=== PATIENT | female | born 1940 | race Caucasian/White ===

== ENCOUNTER → 2017-09-08 | Emergency (ER) | payer OTHER ==
[~2017-09-08] VITALS: Ht 162.6 cm; Wt 72.6 kg
[~2017-09-08] MED LIST: AMBIEN10 MG PO; CARAFATE SU1 G/10 ML PO; ENALAPRIL MALEA10 MG NGT; KLONOPIN0.125 MG/T PO; LEVSIN/SL0.125 MG PO; LISINOPRIL2.5 MG; NORVASC2.5 M1; PAXIL10 MG/5 ML PO; PROTONIX40 MG PO; RESTORIL30 M1; [UNRECOGNIZED DRUG - OTHER] MC
== END | disposition home or self-care (01) ==
LOC: ER 09:16
DX: K52.9 Noninfective gastroenteritis and colitis, unspecified (principal)

== ENCOUNTER 2019-03-12 10:15 | Emergency (ER) | payer OTHER ==
[~2019-03-12] VITALS: Ht 162.6 cm; Wt 72.6 kg
== END 2019-03-12 22:21 | disposition home or self-care (01) ==
LOC: ER 10:15
DX: R10.13 Epigastric pain (principal); K52.89 Other specified noninfective gastroenteritis and colitis

== ENCOUNTER 2019-09-26 09:50 | Emergency (ER) | payer OTHER ==
[~2019-09-26] VITALS: Ht 162.6 cm; Wt 73.5 kg
== END 2019-09-27 04:06 | disposition home or self-care (01) ==
LOC: ER 09:50
DX: K59.09 Other constipation (principal); K57.90 Diverticulosis of intestine, part unspecified, without perforation or abscess without bleeding

== ENCOUNTER 2020-01-29 10:45 | Emergency (ER) | payer OTHER ==
[~2020-01-29] VITALS: Ht 157.5 cm; Wt 65.3 kg
== END 2020-01-29 15:23 | disposition home or self-care (01) ==
LOC: ER 10:45
DX: N39.0 Urinary tract infection, site not specified (principal)

== ENCOUNTER 2020-03-20 08:43 | Emergency (ER) | payer OTHER ==
[~2020-03-20] VITALS: Ht 162.6 cm; Wt 72.6 kg
== END 2020-03-20 22:57 | disposition home or self-care (01) ==
LOC: ER 08:43
DX: K52.89 Other specified noninfective gastroenteritis and colitis (principal); Z03.818 Encounter for observation for suspected exposure to other biological agents ruled out; R11.2 Nausea with vomiting, unspecified

== ENCOUNTER 2021-06-17 13:55 | Emergency (ER) | payer OTHER ==
[~2021-06-17] VITALS: Ht 162.6 cm; Wt 74.8 kg
[2021-06-17] MEDS ORDERED: VITAMIN B-121000 MC4 (14:29)
[2021-06-17] MEDS ORDERED: LEVOTHYROXINE25 MCG (14:29)
[2021-06-17] MEDS ORDERED: LYRICA50 MG (14:29)
[2021-06-17] MEDS ORDERED: CYMBALTA60 MG (14:29)
[2021-06-17] MEDS ORDERED: CHILDREN'S ASPI81 MG (14:30)
[2021-06-17] MEDS ORDERED: AMLODIPINE-OLM1 EACH (14:30)
[2021-06-17] MEDS ORDERED: LEXAPRO20 MG (14:30)
[2021-06-17] MEDS ORDERED: ZESTRIL5 MG (14:31)
== END 2021-06-17 17:24 | disposition home or self-care (01) ==
LOC: ER 13:55
DX: R60.0 Localized edema (principal); N39.0 Urinary tract infection, site not specified

== ENCOUNTER 2023-01-19 14:12 | Emergency (ER) | payer OTHER ==
[~2023-01-19] VITALS: Ht 162.6 cm; Wt 68.9 kg
[~2023-01-19 14:12] MED LIST changes: +AMLODIPINE-OLM1 EACH; +CELEBREX100 MG PO; +CHILDREN'S ASPI81 MG; +COZAAR50 MG; +CYMBALTA60 MG; +LEVOTHYROXINE25 MCG; +LEXAPRO20 MG; +LYRICA50 MG; +METAXALONE400 MG PO; +VITAMIN B-121000 MC4; +ZESTRIL5 MG
== END 2023-01-19 22:23 | disposition home or self-care (01) ==
LOC: ER 14:12
DX: K29.60 Other gastritis without bleeding (principal); R11.10 Vomiting, unspecified

== ENCOUNTER 2023-02-27 08:10 | Inpatient (IN) | payer OTHER ==
[~2023-02-27] VITALS: Ht 152.4 cm; Wt 69.4 kg
[2023-02-27] MEDS ORDERED: SIMVASTATIN10 MG (08:33)
--- NOTE | 2023-02-27 08:36 | NUR ---
SE RECIBE FEMINA ALERTA Y ORIENTADA X3 QUIEN REFIERE DOLOR EN EL ABDOMEN DESDE HACE 2 SEMANAS. VERBALIZA DORA VISITADO AL GASTROENTEROLGO Y LOS MEDICAMENTOS NO LE FUNCIONAN. SE MIDEN S/V Y SE UBICA.
--- NOTE | 2023-02-27 08:49 | NUR ---
PTE EVALUADO POR DR. GRIJALVA SE EJECUTA ORDENE MEDICA Y SE JUSTIN MUESTRA BAJO MEDIDAS ASEPTICAS, SE OREINTA PTE REFIERE ENTENDER
[2023-03-03] MEDS ORDERED: LOSARTAN-HCTZ1 EACH (13:31)
[2023-03-03] MEDS ORDERED: PREGABALIN75 MG (13:31)
[2023-03-03] MEDS ORDERED: NORVASC2.5 MG (13:31)
[2023-03-03] MEDS ORDERED: FOLIC ACID1 MG (13:31)
[2023-03-03] MEDS ORDERED: FAMOTIDINE20 MG (13:31)
[2023-03-03] MEDS ORDERED: PANTOPRAZOLE SO40 MG (13:31)
[2023-03-03] MEDS ORDERED: TOLTERODINE TART4 MG (13:32)
== END 2023-03-04 21:00 | disposition home or self-care (01) | DRG 392 ==
LOC: ER 08:10 → MEDI 18:35
PROVIDERS: ADMIT Internal Medicine; ATTEND Internal Medicine
PROC: BW21YZZ Computerized Tomography (CT Scan) of Abdomen and Pelvis using Other Contrast (ICD-10-PCS; principal; 2023-02-27)
DX: K57.30 Diverticulosis of large intestine without perforation or abscess without bleeding (principal); K52.89 Other specified noninfective gastroenteritis and colitis; E86.0 Dehydration; I10 Essential (primary) hypertension; E03.9 Hypothyroidism, unspecified; Z20.822 Contact with and (suspected) exposure to COVID-19

== ENCOUNTER 2023-03-07 07:12 | Emergency (ER) | payer OTHER ==
[~2023-03-07] VITALS: Ht 160 cm; Wt 68.9 kg
[~2023-03-07 07:12] MED LIST changes: +FAMOTIDINE20 MG; +FOLIC ACID1 MG; +LOSARTAN-HCTZ1 EACH; +NORVASC2.5 MG; +PANTOPRAZOLE SO40 MG; +PREGABALIN75 MG; +SIMVASTATIN10 MG; +TOLTERODINE TART4 MG
== END 2023-03-07 11:29 | disposition home or self-care (01) ==
LOC: ER 07:12
DX: K29.70 Gastritis, unspecified, without bleeding (principal)

== ENCOUNTER 2023-03-09 08:10 | Emergency (ER) | payer OTHER ==
[~2023-03-09] VITALS: Ht 160 cm; Wt 69.4 kg
== END 2023-03-09 14:14 | disposition home or self-care (01) ==
LOC: ER 08:10
DX: R10.13 Epigastric pain (principal); I10 Essential (primary) hypertension

== ENCOUNTER 2023-07-27 08:52 | Emergency (ER) | payer OTHER ==
[~2023-07-27] VITALS: Ht 160 cm; Wt 71.7 kg
[2023-07-27 10:33] LABS: HEMATOCRIT 33.8 % (36.0-45.00); HEMOGLOBIN 11.5 g/dL (12.0-15.00); MEAN CELL VOLUME 87.9 fL (80.00-100.00); MEAN CORPUSCULAR HGB CONC 34.1 g/dl (32.0-36.0); PLATELET COUNT 187 K/uL (150-450); RED BLOOD COUNT 3.84 M/uL (4.00-6.00); RED CELL DISTRIBUTION WIDTH 14.5 % (11.5-14.5)
[2023-07-27 10:37] LABS: CALCIUM 9.4 mg/dL (8.5-10.1); CREATININE SERUM 1.5 mg/dL (0.55-1.02); GFR 33.08; POTASSIUM 4.02 mEq/L (3.5-5.1)
[2023-07-27 10:44] LABS: URINE APPEARANCE Clear; URINE BILIRRUBIN Negative (NEGATIVE); URINE BLOOD Negative; URINE COLOR Yellow; URINE GLUCOSE Negative (NEGATIVE); URINE LEUKOCYTE Trace; URINE NITRATE Negative; URINE PROTEIN Negative (NEGATIVE); URINE UROBILINOGEN 0.2 E.U./dl
[2023-07-27 10:45] LABS: URINE BACTERIA 7.5 uL (0.0-1933); URINE EPITHELIAL CELLS 2.3 uL (0.0-38.8); URINE WBC 2.3 uL (0.0-23.2)
[2023-07-27 10:52] LABS: URINE RBC 0.8 uL (0.0-20.8)
== END 2023-07-27 12:39 | disposition home or self-care (01) ==
LOC: ER 08:52
PROVIDERS: General Practice
DX: R10.9 Unspecified abdominal pain (principal); K57.90 Diverticulosis of intestine, part unspecified, without perforation or abscess without bleeding
CPT/HCPCS: 36415; 74018; 96365; 96366; 99284; J2405; J3490; J7030

== ENCOUNTER 2023-07-28 13:18 | Inpatient (IN) | payer OTHER ==
[~2023-07-28] VITALS: Ht 154.9 cm; Wt 147.9 kg
[2023-07-28 15:46] LABS: HEMATOCRIT 37.2 % (36.0-45.00); HEMOGLOBIN 12.3 g/dL (12.0-15.00); MEAN CELL VOLUME 90.7 fL (80.00-100.00); MEAN CORPUSCULAR HEMOGLOBIN 29.9 pg (27.00-32.0); PLATELET COUNT 200 K/uL (150-450); RED BLOOD COUNT 4.11 M/uL (4.00-6.00); RED CELL DISTRIBUTION WIDTH 14.7 % (11.5-14.5)
[2023-07-28 16:01] LABS: PH,URINE 5.5 (5.0-8.0); URINE APPEARANCE Clear; URINE BILIRRUBIN Negative (NEGATIVE); URINE BLOOD Negative; URINE COLOR Yellow; URINE GLUCOSE Negative (NEGATIVE); URINE LEUKOCYTE Trace; URINE NITRATE Negative; URINE PROTEIN Trace (NEGATIVE); URINE UROBILINOGEN 0.2 E.U./dl
[2023-07-28 16:05] LABS: INR 1.09; PARTIAL THROMBOPLASTIN TIME 28.8 SECONDS (22.0-34.0); PROTHROMBIN TIME 11.4 SECONDS (9.0-11.5)
[2023-07-28 16:05] LABS: URINE BACTERIA 7.5 uL (0.0-1933); URINE RBC 5.8 uL (0.0-20.8)
[2023-07-28 16:06] LABS: CALCIUM 9.5 mg/dL (8.5-10.1); CREATININE SERUM 1.55 mg/dL (0.55-1.02); GFR 31.85; POTASSIUM 3.76 mEq/L (3.5-5.1)
[2023-07-29 02:51] LABS: MAGNESIUM 2.1 mg/dL (1.8-2.4); PHOSPHOROUS 3.6 mg/dL (2.5-4.9)
[2023-07-29 16:18] LABS: CALCIUM 8.7 mg/dL (8.5-10.1); CHOL HDL RATIO 1.4 (0-5.0); CREATININE SERUM 1.33 mg/dL (0.55-1.02); GFR 38.01; POTASSIUM 3.89 mEq/L (3.5-5.1)
[2023-07-30 07:48] LABS: HEMATOCRIT 34.1 % (36.0-45.00); HEMOGLOBIN 11.6 g/dL (12.0-15.00); MEAN CELL VOLUME 88.7 fL (80.00-100.00); MEAN CORPUSCULAR HEMOGLOBIN 30.1 pg (27.00-32.0); MEAN CORPUSCULAR HGB CONC 33.9 g/dl (32.0-36.0); PLATELET COUNT 190 K/uL (150-450); RED BLOOD COUNT 3.85 M/uL (4.00-6.00)
[2023-07-30 07:52] LABS: ALBUMIN 3.4 gm/dL (3.4-5.0); BILIRUBIN TOTAL 0.32 mg/dL (0.3-1.2); CALCIUM 8.8 mg/dL (8.5-10.1); CREATININE SERUM 1.36 mg/dL (0.55-1.02); GFR 37.04; GLOBULINA 2.9 G/DL (2.4-3.5); POTASSIUM 3.77 mEq/L (3.5-5.1); TOTAL PROTEIN 6.3 gm/dL (6.4-8.2)
[2023-07-31] MEDS ORDERED: MIRALAX510 GM PO (14:21)
[2023-07-31] MEDS ORDERED: AMOX-CLAV 875-1 EACH PO (14:21)
[2023-07-31] MEDS ORDERED: LEVSIN/SL0.125 MG SL (14:21)
[2023-07-31] MEDS ORDERED: NASAL MIST126 ML NASAL (14:21)
== END 2023-07-31 15:36 | disposition home or self-care (01) | DRG 392 ==
LOC: ER 13:18 → SEC-K 22:32 → MEDJ 22:32
PROVIDERS: General Practice; ADMIT Internal Medicine; ATTEND Internal Medicine
PROC: BW21ZZZ Computerized Tomography (CT Scan) of Abdomen and Pelvis (ICD-10-PCS; principal; 2023-07-28)
DX: K52.89 Other specified noninfective gastroenteritis and colitis (principal); E03.9 Hypothyroidism, unspecified; E78.49 Other hyperlipidemia; I12.9 Hypertensive chronic kidney disease with stage 1 through stage 4 chronic kidney disease, or unspecified chronic kidney disease; N18.30 Chronic kidney disease, stage 3 unspecified

== ENCOUNTER 2024-05-16 09:03 | Emergency (ER) | payer OTHER ==
[~2024-05-16] VITALS: Ht 162.6 cm; Wt 71.7 kg
[~2024-05-16 09:03] MED LIST changes: +AMOX-CLAV 875-1 EACH PO; +LEVSIN/SL0.125 MG SL; +MIRALAX510 GM PO; +NASAL MIST126 ML NASAL
== END 2024-05-16 10:58 | disposition home or self-care (01) ==
LOC: ER 09:05
DX: S89.81XA Other specified injuries of right lower leg, initial encounter (principal); W19.XXXA Unspecified fall, initial encounter; Y93.89 Activity, other specified; Y92.89 Other specified places as the place of occurrence of the external cause; Y99.8 Other external cause status; I10 Essential (primary) hypertension; E03.8 Other specified hypothyroidism

== ENCOUNTER 2025-02-28 09:48 | Inpatient (IN) | payer OTHER ==
[~2025-02-28] VITALS: Ht 160 cm; Wt 72.6 kg
--- NOTE | 2025-02-28 10:50 | NUR ---
PTE ALERTA Y ORIENTADA X3 REFIERE QUE TIENE DOLOR ABDOMINAL. SE MIDEN S/V Y SE UBICA.
[2025-02-28] MEDS ORDERED: KETOROLAC TROMETHAMINE 30 MG VIAL IV ONE (11:30)
--- NOTE | 2025-02-28 12:34 | NUR ---
PTE. EVALUADO POR DR. PENNINGTON, PRESENTANDO DOLOR ABDOMINAL, SE COLECTAN MUESTRA POR ORDEN MEDICA Y SE ADMINISTRA MEDICACION PRE-ESCRITA. SE OFRECE ORIENTACION SOBRE PROCEDIMIENTOS REALIZADOS Y PROCESO DE RE-EVALUACION MEDICA. PENDIENTE CT ABD. PELVICO. CLIENTE ALERTAY ORIENTADO AL MOMENTO DE LA INTERVENCION.
[2025-02-28 12:39] LABS: BASO % 0.3 % (0.1-1.2); EOS # 0.07 (0.04-0.54); EOS % 0.9 % (0.7-7.0); LYMPH # 1.52 (1.18-3.74); LYMPH % 19.1 % (19.3-53.1); MEAN PLATELET VOLUME 9.70 fl (9.4-12.4); MONO # 0.62 (0.24-0.82); MONO % 7.8 % (4.7-12.5); NEUT # 5.66 (1.56-6.13); NEUT % 71.3 % (34.0-71.1); RED CELL DISTRIBUTION WIDTH 14.0 % (11.6-14.4)
[2025-02-28 13:01] LABS: BUN CREA RATIO 14.0 (7.0-25.0); CREATININE SERUM 1.59 mg/dL (0.55-1.02); GFR 30.78; GLUCOSE FASTING 93.0 mg/dL (65-100); OSMOLALITY SERUM 279.0 MOSM/KG (275-295)
[2025-02-28] MEDS ORDERED: MORPHINE SULFATE 4 MG/ML VIAL IV ONE (14:30)
[2025-02-28 15:22] LABS: URINE APPEARANCE Clear; URINE BILIRRUBIN Negative (NEGATIVE); URINE BLOOD Negative; URINE COLOR Yellow; URINE GLUCOSE Negative (NEGATIVE); URINE KETONE 15 (NEGATIVE); URINE LEUKOCYTE Negative; URINE NITRATE Negative; URINE PROTEIN Negative (NEGATIVE); URINE UROBILINOGEN 0.2 E.U./dl
[2025-02-28 15:25] LABS: URINE BACTERIA 19.1 uL (0.0-1933); URINE EPITHELIAL CELLS 5.8 uL (0.0-38.8); URINE RBC 4.1 uL (0.0-20.8); URINE WBC 5.0 uL (0.0-23.2)
[2025-02-28 16:07] LABS: URINE CAST 0.14 uL (0.0-1.40)
[2025-02-28 19:57] LABS: ALT/SGPT 24.0 U/L (12-78); AST/SGOT 20.0 U/L (15-37); BILIRUBIN TOTAL 0.51 mg/dL (0.3-1.2); BILIRUBIN,CONJUGATED 0.12 mg/dL (0.0-0.2); BUN CREA RATIO 16.0 (7.0-25.0); CREATININE SERUM 1.51 mg/dL (0.55-1.02); GFR 32.67; GLOBULINA 2.9 G/DL (2.4-3.5); GLUCOSE FASTING 77.0 mg/dL (65-100); OSMOLALITY SERUM 279.0 MOSM/KG (275-295)
[2025-02-28] MEDS ORDERED: 0.9 % SODIUM CHLORIDE 1,000 ML IV SCH (23:00)
[2025-02-28] MEDS ORDERED: KETOROLAC TROMETHAMINE 15 MG VIAL IU ONE (23:00)
[2025-02-28] MEDS ORDERED: MORPHINE SULFATE 2 MG/ML CARTRIDGE IV ONE (23:00)
[2025-02-28] MEDS ORDERED: MORPHINE SULFATE 2 MG/ML CARTRIDGE IV PRN (23:00)
[2025-03-01 03:07] VITALS: BP 102/75
[2025-03-01 03:50] LABS: INR 1.14
[2025-03-01] MEDS ORDERED: FAMOTIDINE/PF 20 MG/2 ML VIAL IV SCH (05:00)
[2025-03-01] MEDS ORDERED: LEVOTHYROXINE SODIUM 25 MCG TABLET PO SCH (06:00)
[2025-03-01] MEDS ORDERED: AMLODIPINE BESYLATE 5 MG TABLET PO SCH (09:00)
[2025-03-01 11:05] LABS: URINE APPEARANCE Clear; URINE BILIRRUBIN Negative (NEGATIVE); URINE BLOOD Negative; URINE COLOR Yellow; URINE GLUCOSE Negative (NEGATIVE); URINE KETONE 15 (NEGATIVE); URINE LEUKOCYTE Small; URINE NITRATE Negative; URINE PROTEIN Negative (NEGATIVE); URINE UROBILINOGEN 0.2 E.U./dl
[2025-03-01 11:10] LABS: URINE BACTERIA 142.8 uL (0.0-1933); URINE EPITHELIAL CELLS 37.9 uL (0.0-38.8); URINE WBC 39.2 uL (0.0-23.2)
[2025-03-01 11:27] VITALS: BP 140/63; O2SAT 96
[2025-03-01 11:42] LABS: URINE CAST 0.14 uL (0.0-1.40); URINE RBC 1.3 uL (0.0-20.8)
[2025-03-01 11:43] LABS: TYPE CELLS SQUAMOUS
[2025-03-01] MEDS ORDERED: LOSARTAN POTASSIUM 50 MG TABLET PO NR (15:00)
[2025-03-01 16:58] VITALS: BP 159/67; O2SAT 96
[2025-03-01] MEDS ORDERED: PANTOPRAZOLE SODIUM 40 MG/VIAL VIAL IV SCH (17:00)
[2025-03-02 00:48] VITALS: BP 120/58; O2SAT 96
[2025-03-02 08:00] VITALS: BP 160/82; O2SAT 96
[2025-03-02 08:35] LABS: BASO % 0.5 % (0.1-1.2); EOS # 0.19 (0.04-0.54); EOS % 2.3 % (0.7-7.0); LYMPH # 2.03 (1.18-3.74); LYMPH % 24.2 % (19.3-53.1); MEAN PLATELET VOLUME 11.80 fl (9.4-12.4); MONO # 0.79 (0.24-0.82); MONO % 9.4 % (4.7-12.5); NEUT # 5.25 (1.56-6.13); NEUT % 62.6 % (34.0-71.1); RED CELL DISTRIBUTION WIDTH 14.2 % (11.6-14.4)
[2025-03-02] MEDS ORDERED: LOSARTAN POTASSIUM 50 MG TABLET PO SCH (09:00)
[2025-03-02 09:13] LABS: ALT/SGPT 19.0 U/L (12-78); AST/SGOT 24.0 U/L (15-37); BILIRUBIN TOTAL 0.64 mg/dL (0.3-1.2); BUN CREA RATIO 19.0 (7.0-25.0); CREATININE SERUM 1.34 mg/dL (0.55-1.02); GFR 37.5; GLOBULINA 3.0 G/DL (2.4-3.5); OSMOLALITY SERUM 281.0 MOSM/KG (275-295)
[2025-03-02 09:30] LABS: GLUCOSE FASTING 44.0 mg/dL (65-100)
[2025-03-02] MEDS ORDERED: DEXTROSE 50 % IN WATER 0.5 G/ML DISP.SYRIN IV PRN (09:45)
[2025-03-02] MEDS ORDERED: INSULIN LISPRO 1,000 UNIT/10 ML UNITS SUBCUTANEO PRN (09:45)
[2025-03-02] MEDS ORDERED: DEXTROSE 5 % IN WATER 500 ML IV SCH (09:45)
[2025-03-02] MEDS ORDERED: DEXTROSE 50 % IN WATER 0.5 G/ML VIAL IV PRN (10:00)
[2025-03-02 16:00] VITALS: BP 169/81; O2SAT 97
[2025-03-03 01:08] VITALS: BP 134/79; O2SAT 97
[2025-03-03 08:14] VITALS: BP 98/80; O2SAT 96
[2025-03-03 12:00] VITALS: BP 138/92; O2SAT 96
[2025-03-03 16:00] VITALS: BP 105/70; O2SAT 96
[2025-03-04 00:52] VITALS: BP 98/62; O2SAT 96
[2025-03-04 08:20] VITALS: BP 155/75; O2SAT 97
== END 2025-03-04 15:45 | disposition home or self-care (01) | DRG 445 ==
LOC: ER 10:36 → SURH 23:02 → SEC-K 23:02 → SURH 03-01 10:23
PROVIDERS: Emergency Medicine; General Practice; ADMIT Student in an Organized Health Care Education/Training Program; ATTEND Student in an Organized Health Care Education/Training Program
PROC: BF37ZZZ Magnetic Resonance Imaging (MRI) of Pancreas (ICD-10-PCS; principal; 2025-02-28)
PROC: BW21ZZZ Computerized Tomography (CT Scan) of Abdomen and Pelvis (ICD-10-PCS; 2025-02-28)
DX: K80.50 Calculus of bile duct without cholangitis or cholecystitis without obstruction (principal); N17.8 Other acute kidney failure; E86.0 Dehydration; E11.9 Type 2 diabetes mellitus without complications; I10 Essential (primary) hypertension; E03.9 Hypothyroidism, unspecified; Z79.4 Long term (current) use of insulin

== ENCOUNTER 2025-03-17 15:10 | Emergency (ER) | payer OTHER ==
[~2025-03-17] VITALS: Ht 160 cm; Wt 70.3 kg
[2025-03-17 15:40] VITALS: BP 90/70; O2SAT 99
[2025-03-17] MEDS ORDERED: CIPROFLOXACIN IN 5 % DEXTROSE 400 MG/200 ML PIGGYBAG IV ONE ×2 (17:00→17:04)
[2025-03-17] MEDS ORDERED: KETOROLAC TROMETHAMINE 30 MG VIAL IV ONE (17:00)
[2025-03-17] MEDS ORDERED: 0.9 % SODIUM CHLORIDE 1,000 ML IV ONE (17:00)
[2025-03-17] MEDS ORDERED: FAMOtidine 10 MG/ML (4ML VIAL) IV ONE (17:00)
[2025-03-17] MEDS ORDERED: KETOROLAC TROMETHAMINE 30 MG VIAL ONE (17:03)
[2025-03-17] MEDS ORDERED: FAMOTIDINE/PF 20 MG/2 ML VIAL ONE (17:04)
[2025-03-17 18:49] LABS: BASO % 0.5 % (0.1-1.2); EOS # 0.17 (0.04-0.54); EOS % 3.1 % (0.7-7.0); LYMPH # 1.55 (1.18-3.74); LYMPH % 28.1 % (19.3-53.1); MEAN PLATELET VOLUME 10.40 fl (9.4-12.4); MONO # 0.81 (0.24-0.82); NEUT # 2.94 (1.56-6.13); NEUT % 53.4 % (34.0-71.1); RED CELL DISTRIBUTION WIDTH 14.4 % (11.6-14.4)
[2025-03-17 18:57] LABS: MONO % 14.7 % (4.7-12.5)
[2025-03-17 19:13] LABS: INR 1.15
[2025-03-17 19:25] LABS: ALT/SGPT 17.0 U/L (12-78); AST/SGOT 18.0 U/L (15-37); BILIRUBIN TOTAL 0.44 mg/dL (0.3-1.2); BUN CREA RATIO 10.0 (7.0-25.0); CREATININE SERUM 1.42 mg/dL (0.55-1.02); GFR 35.07; GLOBULINA 3.1 G/DL (2.4-3.5); GLUCOSE FASTING 107.0 mg/dL (65-100); OSMOLALITY SERUM 282.0 MOSM/KG (275-295)
[2025-03-17 19:41] LABS: URINE APPEARANCE Clear; URINE BILIRRUBIN Negative (NEGATIVE); URINE BLOOD Negative; URINE COLOR Yellow; URINE GLUCOSE Negative (NEGATIVE); URINE KETONE Negative (NEGATIVE); URINE LEUKOCYTE Negative; URINE NITRATE Negative; URINE PROTEIN Negative (NEGATIVE); URINE UROBILINOGEN 0.2 E.U./dl
[2025-03-17 19:46] LABS: URINE BACTERIA 22.8 uL (0.0-1933); URINE EPITHELIAL CELLS 1.5 uL (0.0-38.8); URINE WBC 1.8 uL (0.0-23.2)
[2025-03-17 20:02] LABS: URINE CAST 0.14 uL (0.0-1.40); URINE RBC 0.4 uL (0.0-20.8)
[2025-03-17] MEDS ORDERED: LEVSIN/SL0.125 MG SL (21:57)
[2025-03-17] MEDS ORDERED: ORPHENADRINE CITRATE 30 MG/ML AMPUL ONE (22:07)
[2025-03-17] MEDS ORDERED: APETIGEN-PLUS1 EACH PO (22:07)
[2025-03-17] MEDS ORDERED: ORPHENADRINE CITRATE 30 MG/ML AMPUL IM ONE (22:15)
== END 2025-03-17 22:41 | disposition home or self-care (01) ==
LOC: ER 15:23
PROVIDERS: General Practice
DX: K52.9 Noninfective gastroenteritis and colitis, unspecified (principal); R10.30 Lower abdominal pain, unspecified; K57.30 Diverticulosis of large intestine without perforation or abscess without bleeding; I10 Essential (primary) hypertension
CPT/HCPCS: 36415; 74177; 96365; 96366; 99284; J0744; J1885; J3490; Q9965